=== PATIENT | male | born 1970 | race Caucasian/White ===

== ENCOUNTER 2023-07-27 11:28 | Day surgery (SDC) | payer BC ==
[~2023-07-27 11:28] MED LIST: Lactated Ringers 1,000 ML IV SCH; Propofol 200 MG/20 ML SDV ONE; Sodium Chloride 0.9% 10 ML Syringe FLUSH PRN
[2023-07-27] MEDS ORDERED: Propofol 200 MG/20 ML SDV ONE (13:08)
== END 2023-07-27 13:30 | disposition home or self-care (01) ==
LOC: LL.SDS 11:28
PROVIDERS: ATTEND Surgery
DX: Z12.11 Encounter for screening for malignant neoplasm of colon (principal); K29.50 Unspecified chronic gastritis without bleeding; K21.9 Gastro-esophageal reflux disease without esophagitis; K44.9 Diaphragmatic hernia without obstruction or gangrene; Z79.899 Other long term (current) drug therapy
CPT/HCPCS: 00813; J2704; J7120